=== PATIENT | female | born 1990 | race Caucasian/White ===

== ENCOUNTER → 2017-11-17 | Emergency (ER) | payer OTHER ==
[~2017-11-17] VITALS: Ht 162.6 cm; Wt 49.4 kg
== END | disposition left against medical advice (07) ==
LOC: ER 22:15
DX: Z53.20 Procedure and treatment not carried out because of patient's decision for unspecified reasons (principal)

== ENCOUNTER 2017-11-18 12:58 | Emergency (ER) | payer OTHER ==
[~2017-11-18] VITALS: Ht 162.6 cm; Wt 49.4 kg
== END 2017-11-18 14:10 | disposition home or self-care (01) ==
LOC: ER 12:58
DX: S33.5XXA Sprain of ligaments of lumbar spine, initial encounter (principal); M54.89 Other dorsalgia; X50.0XXA Overexertion from strenuous movement or load, initial encounter; Y93.89 Activity, other specified; Y92.89 Other specified places as the place of occurrence of the external cause; Y99.8 Other external cause status